=== PATIENT | female | born 1980 | race Hispanic/Latino ===

== ENCOUNTER → 2023-05-31 15:33 | Outpatient (REF) | payer BC, SELFPAY | LOC: PNTC 15:33 | PROVIDERS: ATTENDING PHYSICIAN Obstetrics & Gynecology | DX: Z36.0 Encounter for antenatal screening for chromosomal anomalies (principal); Z36.82 Encounter for antenatal screening for nuchal translucency | CPT/HCPCS: 76801; 76813 ==

== ENCOUNTER → 2023-06-04 14:58 | Outpatient (REF) | payer BC, SELFPAY | LOC: PNTC 14:58 | PROVIDERS: ATTENDING PHYSICIAN Obstetrics & Gynecology | DX: O09.529 Supervision of elderly multigravida, unspecified trimester (principal); O35.02X0 Maternal care for (suspected) central nervous system malformation or damage in fetus, anencephaly, not applicable or unspecified | CPT/HCPCS: 76815 ==

== ENCOUNTER → 2023-06-08 06:46 | Day surgery (SDC) | payer BC, SELFPAY ==
[2023-06-08] VITALS (8 sets, daily range): BP systolic 110–128; BP diastolic 62–75; BMI 24.6
[2023-06-08] MEDS: VIBRAMYCIN 260 MG IV (10:18)
[2023-06-08 10:28] LABS: Hematocrit 35.9 % (37.0-47.0); Mean Corp Hgb Conc. 36.2 g/dL (33.0-37.0); Mean Corpuscular Hgb 31.9 pg (27.0-31.0); Mean Platelet Volume 10.1 fL (7.4-10.4); Platelet Count 232 10^3/uL (130-400); Red Blood Cell Count 4.08 10^6/uL (4.20-5.40); Red Cell Dist. Width 13.2 % (11.5-14.5); White Blood Cell Count 8.6 10^3/uL (4.8-10.8)
[2023-06-08] MEDS: TYLENOL 650 MG PO (14:01)
== END ==
LOC: SDS 06:46
PROVIDERS: ATTENDING PHYSICIAN Obstetrics & Gynecology
DX: O35.02X0 Maternal care for (suspected) central nervous system malformation or damage in fetus, anencephaly, not applicable or unspecified (principal); O09.521 Supervision of elderly multigravida, first trimester; Z3A.13 13 weeks gestation of pregnancy
CPT/HCPCS: 59841; 88305; 76998; 85027; 86850; 86900; 86901; 87070

== ENCOUNTER → 2024-03-28 07:16 | Outpatient (REF) | payer BC, SELFPAY | LOC: HWRAD 07:16 | PROVIDERS: ATTENDING PHYSICIAN Physician Assistant Medical | DX: R10.33 Periumbilical pain (principal) | CPT/HCPCS: 76705 ==

== ENCOUNTER → 2024-03-29 10:45 | Outpatient (REF) | payer BC, SELFPAY | LOC: WDC 10:45 | PROVIDERS: ATTENDING PHYSICIAN Physician Assistant Medical | DX: Z12.31 Encounter for screening mammogram for malignant neoplasm of breast (principal) | CPT/HCPCS: 77063; 77067 ==

== ENCOUNTER 2024-08-19 06:21 | Day surgery (SDC) | payer BC, SELFPAY ==
[2024-08-19] VITALS (9 sets, daily range): BP systolic 113–121; BP diastolic 65–81; BMI 25.7
[2024-08-19] MEDS: TYLENOL 1000 MG PO (10:13)
[2024-08-19] MEDS: NORMOSOL-R/PLASMALYTE-A 1000 IV (10:13)
--- NOTE | 2024-08-19 11:47 | W.SUR.PREOP ---
Pre-Operative Surgical Note
-
I have examined this patient prior to the performance of the scheduled procedure.
The patient's condition is unchanged from the time of the current History and
Physical and the patient is able to undergo the scheduled procedure.
--- NOTE | 2024-08-19 11:47 | HP.FOC2 ---
Focused History & Physical
Chief Complaint
HPI:
Chief Complaint: Umbilical pain
HPI / Indication for Planned Procedure: This is a 44-year-old female with a symptomatic incisional hernia. Will plan for robotic incisional hernia repair with mesh.
Relevant Past Medical History: Negative
Relevant Social History: Negative
Relevant Family History: Negative
Relevant Past Surgical History: Positive for (Laparoscopic cholecystectomy)
Review of Systems
Review of Pertinent Systems: All Systems Negative
Medication
See Medication form for detailed medications: Yes
Medication List (including Herbals & OTC):
No Meds [No Current Medications] 06/06/23
Medications Reviewed: Yes
Allergies and Reactions
Patient has Allergies: No
Noted Allergies and Reactions:
Allergy/AdvReac Type Severity Reaction Status Date / Time
No Known Allergies Allergy Verified 08/19/24 09:53
Pertinent Physical Exam
All Other Systems: Negative
Head/Neck: Normal
Diagnosis / Assessment
This is a 44-year-old female with a symptomatic incisional hernia.
Plan / Procedure
Will plan for robotic incisional hernia repair with mesh.
Anesthesia/Sedation to be done by Anesthesia Provider: Yes
--- NOTE | 2024-08-19 14:24 | W.IMMPOSTOP ---
Surgical Immed Post Op Note
-
Primary Surgeon: Prakash Drake MD
Assisting Surgeon: None
Pre-op Diagnosis: Incisional hernia
Post-op Diagnosis: Same
Procedure Performed: Robotic incisional hernia repair with mesh (GUSTAVO)
Anesthesia Type: General
Specimen / Cultures: None
Estimated Blood Loss: 7 cc
Complications: None
Operative Findings: 0.5 cm infraumbilical hernia defect containing significant amount of preperitoneal fat which was reduced. The defect was closed in the transverse direction with a 0 V-Loc 180 suture and then reinforced with a 4.[address] mesh which was secured with a running 2-0 PDS suture. The mesh was then covered with the preperitoneal fat pad such that the entire mesh was covered.
--- NOTE | 2024-08-19 14:26 | OR.RPT ---
Operative Report
Operative Report
Patient Name: Carolyn Garcia
: 1980
Date of Operation: 08/19/2024
Preoperative Diagnosis: Ventral incisional hernia
Postoperative Diagnosis: Ventral incisional hernia
Procedure(s):
Robotic Ventral incisional hernia repair with Intraperitoneal Underlay Mesh (IPUM)
Surgeon(s):
Dr. Drake
Affirmative Action Officer(s):
TRACE Pavon
Anesthesia: General
Estimated Blood Loss: 7 cc
Urine Output: None
Drains/Lines/Implants:
4.[address]
Specimens:
None
HPI/Surgical Indications:
This is a 44year old female who presents with a history of a laparoscopic cholecystectomy who presented to my office with abdominal pain and found to have a hernia at her prior incision confirmed on ultrasound. Risks/Benefits/Alternatives were
discussed at length, and the patient agreed to proceed with surgery.
Operative Findings: 0.5 cm infraumbilical hernia defect containing significant amount of preperitoneal fat which was reduced. The defect was closed in the transverse direction with a 0 V-Loc 180 suture and then reinforced with a 4.[address] mesh which was secured with a running 2-0 PDS suture. The mesh was then covered with the preperitoneal fat pad such that the entire mesh was covered.
Procedure Description:
The patient was brought to the Operating Room and placed in the supine position with the arms tucked. IV antibiotics were infused and Venodyne stockings placed. Following uneventful induction of general endotracheal anesthesia, an orogastric tube
was placed. The abdomen was prepped and draped in the usual sterile fashion. The abdomen was entered using a Verress technique which required 1 pass(es), pneumoperitoneum to 15 mmHg was obtained without difficulty. An 8mm trochar was passed
through the abdominal wall roughly 12 cm laterally from the defect, we then confirmed that no inadvertent injury was made while passing the trocar or Veress needle. We then placed 2 additional 8 mm ports along the left lateral abdominal wall. We
then introduced our prograsper through the left hand port and monopolar scissors through the right. We then turned our attention to the hernia which was filled with preperitoneal fat. The periumbilical fat pad was taken down and the preperitoneal
fat was reduced through the hernia defect which ultimately measured 0.5 cm. This was then closed in the transverse direction using a 0 V-Loc 180 suture. As the peritoneal tissue was very thin and flimsy I elected to use a coated polypropylene mesh
to ensure no adhesions would form to any underlying bowel. A 4.[address] mesh was then chandelier through a stab incision over the defect and then secured circumferentially with a running 2-0 PDS barbed suture. The flap was then closed
with a 2-0 Monocryl suture. There were multiple rents that were closed with interrupted Vicryl suture such that no mesh was exposed. Satisfied, the ruler and all sutures were removed. The ports were removed under direct visualization. Counts were
correct and overall, the patient tolerated the procedure well and was taken to the Recovery Room postoperatively in stable condition.
I was the attending physician and performed the procedure with assistance of the PA above. The assistance of TRACE Pavon was required due to the complexity of the procedure. During the procedure Jennifer assisted with port placement, instrument
and needle exchanges, and closure of the wound. I was present for all portions of the case, excluding skin closure.
Prakash Drake MD
[2024-08-19] MEDS: MORPHINE SULFATE 2 MG IV ×2 (15:02→15:16)
[2024-08-19] MEDS: TYLENOL 650 MG PO (16:47)
== END 2024-08-19 17:05 | disposition home or self-care (01) ==
LOC: SDS 06:21
PROVIDERS: ATTENDING PHYSICIAN Surgery
DX: K43.2 Incisional hernia without obstruction or gangrene (principal)
CPT/HCPCS: 49593; C1781

== ENCOUNTER → 2024-12-06 08:58 | Outpatient (REF) | payer BC, SELFPAY | LOC: RAD 08:58 | PROVIDERS: ATTENDING PHYSICIAN Surgery; FAMILY PHYSICIAN Physician Assistant Medical | DX: R10.30 Lower abdominal pain, unspecified (principal) | CPT/HCPCS: 74176 ==